=== PATIENT | female | born 1990 | race Two or more races ===

== ENCOUNTER 2021-03-15 11:36 | Day surgery (SDC) | payer BC, OTHER ==
[2021-03-14 09:00] VITALS: BMI 18.3
[2021-03-15] MEDS ORDERED: LIDOCAINE HCL 2% (20ML MULTI-DOSE VIAL) ONE (13:18)
[2021-03-15] MEDS ORDERED: BUPIVACAINE HCL/PF 0.25% (2.5MG/ML) 10 ML VIAL ONE (13:18)
[2021-03-15] MEDS ORDERED: MIDAZOLAM HCL 2 MG/2 ML SINGLE DOSE VIAL ONE ×2 (13:18)
[2021-03-15] MEDS ORDERED: PROPOFOL 20 ML ONE ×2 (13:18→13:23)
[2021-03-15] MEDS ORDERED: PROMETHAZINE HCL 25 MG/1 ML VIAL IVPUSH PRN (14:16)
[2021-03-15] MEDS ORDERED: ONDANSETRON 4 MG/2 ML VIAL IVPUSH PRN (14:16)
[2021-03-15] MEDS ORDERED: oxyCODONE HCL 5 MG TABLET PO PRN (14:16)
[2021-03-15 15:50] VITALS: BP 118/61; PULSE 60; TEMP 97.7
== END 2021-03-15 15:35 | disposition home or self-care (01) ==
LOC: FASU 11:36
PROVIDERS: ATTEND Orthopaedic Surgery Hand Surgery
PROC: 0JBJ0ZZ Excision of Right Hand Subcutaneous Tissue and Fascia, Open Approach (ICD-10-PCS; principal; 2021-03-15 13:46)
DX: D21.11 Benign neoplasm of connective and other soft tissue of right upper limb, including shoulder (principal)
CPT/HCPCS: 84703; 88305-TC; 88342-TC; 94760